=== PATIENT | female | born 2005 | race Caucasian/White ===

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

== ENCOUNTER 2023-05-10 14:41 | Emergency (ER) | payer MEDICAID ==
[~2023-05-10] VITALS: Ht 157.5 cm; Wt 74.4 kg
[2023-05-10 14:51] VITALS: BP 129/81; PULSE 79; RESP 18; TEMP 98.2; O2SAT 97
[2023-05-10 15:11] VITALS: O2SAT 97
[2023-05-10 15:20] VITALS: BP 122/82; PULSE 77; RESP 19; TEMP 98.2; O2SAT 99
== END 2023-05-10 15:20 | disposition home or self-care (01) ==
LOC: MED 14:41
DX: R22.32 Localized swelling, mass and lump, left upper limb (principal); R03.0 Elevated blood-pressure reading, without diagnosis of hypertension
CPT/HCPCS: 99281